=== PATIENT | female | born 1970 | race Caucasian/White ===

== ENCOUNTER 2018-05-14 18:33 | Emergency (ER) | payer OTHER ==
[2018-05-14 18:36] VITALS: BMI 21.4
[2018-05-14 18:41] VITALS: BP 110/80; PULSE 80; TEMP 97.6
--- NOTE | 2018-05-14 19:01 | PDOC ---
History of Present Illness - General Chief Complaint: Bite Stated Complaint: CAT SCRATCH Time Seen by Provider: 05/14/18 18:37 History Source: Patient Exam Limitations: No Limitations - History of Present Illness Initial Comments: 05/14/18 18:55 48 yo F with no past medical hx presents to the emergency department s/p cat bite and scratch to the distal left leg. Per the patient, this cat is well known to her that lives outside (unknown if owned). She was petting the cat at approximately 5:30 pm which was purring and she stood up to leave and the cat bit her and scratched her. Currently, she has no pain and wants it evaluated. Last tetanus unknown. Denies the following: fever, chills, nausea, vomiting, visual changes, chest pain, SOB, abdominal pain, dysuria, hematuria, loss of LE sensation, loss of motor function, and incontinence Pmhx: none shx: none meds: none allergies: NKDA Social: Endorses tobacco and alcohol use. Denies substance abuse. Past History - Past Medical History Allergies/Adverse Reactions: Allergies Allergy/AdvReac Type Severity Reaction Status Date / Time No Known Allergies Allergy Verified 05/14/18 18:34 Home Medications: Ambulatory Orders Alprazolam [Xanax] 0 mg PO DAILY 05/14/18 Sulfamethoxazole/Trimethoprim [Bactrim Ds -] 1 tab PO BID #10 tablet 05/14/18 COPD: No Other medical history: DENIES - Suicide/Smoking/Psychosocial Hx Smoking History: Current every day smoker Number of Cigarettes Smoked Daily: 20 Information on smoking cessation initiated: Yes Hx Alcohol Use: Yes Drug/Substance Use Hx: No Review of Systems - Review of Systems Able to Perform ROS?: Yes Is the patient limited Ukrainian proficient: No Constitutional: No: Chills, Diaphoresis, Fever, Weakness HEENTM: No: Eye Pain, Recent change in vision, Ear Pain, Nose Pain, Throat Pain , Mouth Pain Respiratory: No: Cough, Shortness of Breath, Hemoptysis Cardiac (ROS): No: Chest Pain, Lightheadedness, Palpitations, Syncope, Chest Tightness ABD/GI: No: Constipated, Diarrhea, Nausea, Poor Appetite, Rectal Bleeding, Vomiting, Tarry Stools : No: Burning, Dysuria, Hematuria Musculoskeletal: No: Back Pain, Joint Pain, Muscle Pain, Muscle Weakness Integumentary: No: Erythema, Flushing, Lesions, Rash Neurological: No: Headache, Numbness, Paresthesia, Weakness, Ataxia Psychiatric: No: Change in Appetite Endocrine: No: Unexplained Weight Gain *Physical Exam - Vital Signs Last Vital Signs Temp Pulse Resp BP Pulse Ox 97.6 F 80 18 110/80 100 05/14/18 18:34 12 18:34 12 18:34 05/14/18 18:34 05/14/18 18:34 - Physical Exam General Appearance: Yes: Nourished, Appropriately Dressed. No: Apparent Distress HEENT: positive: EOMI, PRAVEENA, Normal Voice, Symmetrical, Hearing Grossly Normal. negative: Pale Conjunctivae, Scleral Icterus (R), Scleral Icterus (L), Muffled /Hoarse voice, Nasal Congestion, Rhinorrhea, Excessive drooling Neck: positive: Trachea midline. negative: Tender, Lymphadenopathy (R), Lymphadenopathy (L), Tender lateral, Tender midline Respiratory/Chest: positive: Lungs Clear, Normal Breath Sounds. negative: Chest Tender, Respiratory Distress, Accessory Muscle Use, Paradoxal Breathing, Crackles, Rales, Rhonchi, Stridor, Wheezing Cardiovascular: positive: Regular Rhythm, Regular Rate, S1, S2. negative: Systolic Murmur Gastrointestinal/Abdominal: positive: Normal Bowel Sounds, Flat, Soft. negative : Tender, Distended, Rebound Lymphatic: negative: Adenopathy Musculoskeletal: positive: Normal Inspection. negative: CVA Tenderness, Vertebral Tenderness Extremity: positive: Normal Capillary Refill, Normal Range of Motion, Other ( distal LLE medial aspect puncture wound clean. scratch on the anterior LLE distal portion). negative: Tender, Swelling, Calf Tenderness, Erythema, Inflammation Integumentary: positive: Normal Color, Dry, Warm. negative: Erythema, Hives, Petechiae, Rash, Swelling Neurologic: positive: python java developer II-XII NML intact, Fully Oriented, Alert, Normal Mood/ Affect, Normal Response, Motor Strength 5/5. negative: Sensory Deficit Moderate Sedation - Procedure Monitoring Vital Signs: Procedure Monitoring Vital Signs Temperature 97.6 F 05/14/18 18:34 Pulse Rate 80 05/14/18 18:34 Respiratory Rate 18 05/14/18 18:34 Blood Pressure 110/80 05/14/18 18:34 O2 Sat by Pulse Oximetry (%) 100 05/14/18 18:34 Medical Decision Making - Medical Decision Making 48 yo F with no past medical hx presents to the emergency department s/p cat bite and scratch to the distal left leg. Initial vitals: Initial Vital Signs Temp Pulse Resp BP Pulse Ox 97.6 F 80 18 110/80 100 05/14/18 18:34 12 18:34 12 18:34 05/14/18 18:34 05/14/18 18:34 Work up ddx: likely a clean puncture animal bite from a cat. not concerned for rabies given this cat is known to the patient and was acting like its usual self prior to the bite. will give boostrix and prescription for bactrim to prevent cellulitis/abscess formation given it was a puncture. at the time of discharge, the patient understood the plan and accepted it. Dispo; Discharge *DC/Admit/Observation/Transfer Diagnosis at time of Disposition: Cat scratch Cat bite Qualifiers: Encounter type: initial encounter Qualified Code(s): W55.01XA - Bitten by cat, initial encounter - Discharge Dispostion Disposition: HOME Condition at time of disposition: Stable Decision to Admit order: No - Prescriptions Prescriptions: Sulfamethoxazole/Trimethoprim [Bactrim Ds -] 1 tab PO BID #10 tablet - Referrals Referrals: [facility] [Provider Group] - Patient Instructions Printed Discharge Instructions: DI for Animal Bites Additional Instructions: You were seen for your cat scratch. Please take your antibiotics as prescribed. please follow up with your primary medical doctor or the one referred to you within 72 hours after discharge for follow up care. Please return to the emergency department if you have worsening symptoms or new concerning symptoms such as fever/chills, loss of sensation in the leg, confusion, and nausea/ vomiting. thank you. - Post Discharge Activity
[2018-05-14] MEDS ORDERED: SULFAMETHOXAZOLE/TRIMETHOPRIM 800MG/160MG D.S. TABLET PO ONE (19:18)
[2018-05-14] MEDS ORDERED: DIPHTH,PERTUSS(ACELL),TET 0.5 ML DISP.SYRIN IM ONE ×2 (19:18→19:25)
[2018-05-14] MEDS ORDERED: SULFAMETHOXAZOLE/TRIMETHOPRIM 800MG/160MG D.S. TABLET ONE (19:25)
--- NOTE | 2018-05-14 19:25 | PDOC ---
Attending Attestation - HPI HPI: 05/14/18 19:25 The patient is a 48 year old female, with no significant past medical history, who presents to the emergency department with a cat scratch/bite on her left lower leg sustained by a stray cat around 5:30PM this evening. She denies any other complaints at this time. She states she has played with this stray cat before and states the cat was was playful and purring as usual until she walked away and the car scratched and bit her left leg. She does not recall her last tetanus. The patient denies chest pain, shortness of breath, headache and dizziness. The patient denies fever, chills, nausea, vomit, diarrhea and constipation. The patient denies dysuria, frequency, urgency and hematuria. Allergies: NKDA Social Hx: 1 ppd tobacco smoke, daily alcohol consumption - Physicial Exam PE: 05/14/18 19:25 GENERAL: The patient is awake, alert, and fully oriented, in no acute distress. HEAD:[Normal with no signs of trauma. EYES: Pupils equal, round and reactive to light, extraocular movements intact, sclera anicteric, conjunctiva clear. EXTREMITIES: Normal range of motion, no edema. NEUROLOGICAL: Normal speech, normal gait. PSYCH: Normal mood, normal affect. SKIN: (+) small puncture to the posterior medial left calf. Small superficial abrasion to the anteromedial left gutierrez. No drainage. No streaking, redness, or increased warmth. Dry, normal turgor, no rashes noted. - Medical Decision Making 05/14/18 19:25 Documentation prepared by Ursula Hsu, acting as biomedical specialist for Kaylyn Kaur MD <Ursula Hsu - Last Filed: 05/14/18 19:25> - Resident Resident Name: Brian Presley - ED Attending Attestation I have performed the following: I have examined & evaluated the patient, The case was reviewed & discussed with the resident, I agree w/resident's findings & plan, Exceptions are as noted - Medical Decision Making As noted above, this 48-year-old woman presents with a superficial cat bite and cat scratch of the lower leg, sustained earlier today. The patient describes the cat as a stray but when she sees on a daily basis and feeds regularly. Today, the cat bit and scratched her after she had fed him. This is unusual behavior for the; no other unusual behavior/appearance of the noted by the patient. Tetanus immunization is not up-to-date. Exam as noted above. Because of the likelihood of infection after cat bites, patient received prophylactic antibiotics as noted above. Also Boostrix immunization will be administered. All information regarding patient contacts and description of the cat will be sent to the [facility]. All further follow-up regarding animal observation/patient rabies prophylaxis will be handled by the Department of Health. The patient will return to the emergency room if she has any further inflammation/pain in the area of the bite <Kaylyn Kaur - Last Filed: 05/15/18 00:23>
== END 2018-05-14 19:31 | disposition home or self-care (01) ==
LOC: FER 18:33
PROC: 3E0234Z Introduction of Serum, Toxoid and Vaccine into Muscle, Percutaneous Approach (ICD-10-PCS; principal; 2018-05-14)
DX: S80.872A Other superficial bite, left lower leg, initial encounter (principal); W55.01XA Bitten by cat, initial encounter; Y93.89 Activity, other specified; Y92.89 Other specified places as the place of occurrence of the external cause
CPT/HCPCS: 90715; 99282-25